=== PATIENT | female | born 1930 | race Asian ===

== ENCOUNTER 2018-02-09 23:02 | Observation (INO) | payer MEDICARE, OTHER ==
[2018-02-10 00:12] LABS: ADD MAN DIFF? NO
[2018-02-10 00:13] LABS: BASOPHIL # 0.1 10^3/ul (0.0-0.1); BASOPHILS % 0.7 % (0.0-2.0); EOSINOPHILS # 0.1 10^3/ul (0.0-0.5); HEMATOCRIT 39.8 % (37.0-47.0); HEMOGLOBIN 13.1 g/dl (12.0-16.0); LYMPHOCYTES # 1.6 10^3/ul (0.8-2.9); LYMPHOCYTES % 16.5 % (15.0-51.0); MEAN CORPUSCULAR HEMOGLOBIN 30.2 pg (29.0-33.0); MEAN CORPUSCULAR HGB CONC 32.9 g/dl (32.0-37.0); MEAN CORPUSCULAR VOLUME 91.7 fl (82.0-101.0); MEAN PLATELET VOLUME 9.8 fl (7.4-10.4); MONOCYTE # 0.6 10^3/ul (0.3-0.9); MONOCYTES % 5.9 % (0.0-11.0); NEUTROPHIL # 7.5 10^3/ul (1.6-7.5); NEUTROPHILS % 75.6 % (39.0-77.0); PLATELET COUNT 231 10^3/UL (140-415); RED BLOOD COUNT 4.34 10^6/ul (4.20-5.40); RED CELL DISTRIBUTION WIDTH 12.9 % (11.5-14.5)
[2018-02-10] MEDS: SOD CHLORIDE 0.9% 500 ML IV (00:24)
[2018-02-10 00:36] LABS: ANION GAP 10 (5-13); BLOOD UREA NITROGEN 16 mg/dl (7-20); CALCIUM 8.4 mg/dl (8.4-10.2); CARBON DIOXIDE 27 mmol/L (21-31); CHLORIDE 100 mmol/L (97-110); CREATININE 0.52 mg/dl (0.44-1.00); GLUCOSE 123 mg/dl (70-220); POTASSIUM 4.1 mmol/L (3.5-5.1); SODIUM 137 mmol/L (135-144)
[2018-02-10] MEDS: MECLIZINE 12.5 MG TAB PO (00:37)
[2018-02-10] MEDS: ONDANSETRON 4 MG INJ IV (00:37)
[2018-02-10 00:47] LABS: TROPONIN-I < 0.012 ng/ml (0.000-0.120)
[2018-02-10] MEDS ORDERED: ONDANSETRON 4 MG INJ IV (06:00)
[2018-02-10] MEDS ORDERED: NACL 0.9% 3 ML SYG IV (06:00)
[2018-02-10] MEDS ORDERED: ACETAMINOPHEN 325 MG TAB PO (06:00)
[2018-02-10] MEDS ORDERED: MECLIZINE 25 MG TAB PO (06:30)
[2018-02-10 07:06] LABS: CREATINE KINASE 102 IU/L (23-200)
[2018-02-10 07:10] LABS: CK INDEX 1.2; CK-MB 1.27 ng/ml (0.0-2.4); TROPONIN-I < 0.012 ng/ml (0.000-0.120)
[2018-02-10] MEDS: DONEPEZIL 10 MG TAB PO (09:07)
[2018-02-10] MEDS: AMLODIPINE 5 MG TAB PO (09:08)
[2018-02-10] MEDS: ENOXAPARIN 30 MG/0.3 ML SYG SC (09:11)
[2018-02-10] MEDS: SOD CHLORIDE 0.9% 100 ML (09:40)
[2018-02-10] MEDS: IOHEXOL 300MG/ML 150 ML BTL (09:40)
[2018-02-10 12:32] LABS: CREATINE KINASE 105 IU/L (23-200)
[2018-02-10 12:44] LABS: CK INDEX 1.1; CK-MB 1.12 ng/ml (0.0-2.4); TROPONIN-I < 0.012 ng/ml (0.000-0.120)
[2018-02-10] MEDS: ATORVASTATIN 20 MG TAB PO (20:22)
[2018-02-10] MEDS: MECLIZINE 25 MG TAB PO (20:22)
[2018-02-11] MEDS: MECLIZINE 25 MG TAB PO (08:21)
[2018-02-11] MEDS: DONEPEZIL 10 MG TAB PO (08:21)
[2018-02-11] MEDS: AMLODIPINE 5 MG TAB PO (08:21)
[2018-02-11] MEDS: ENOXAPARIN 30 MG/0.3 ML SYG SC (09:34)
[2018-02-11 10:08] LABS: ADD MAN DIFF? NO
[2018-02-11 10:11] LABS: WHITE BLOOD COUNT 8.4 10^3/ul (4.8-10.8)
[2018-02-11 10:11] LABS: BASOPHIL # 0.1 10^3/ul (0.0-0.1); BASOPHILS % 0.9 % (0.0-2.0); EOSINOPHILS # 0.2 10^3/ul (0.0-0.5); EOSINOPHILS % 2.3 % (0.0-7.0); HEMATOCRIT 40.7 % (37.0-47.0); HEMOGLOBIN 13.5 g/dl (12.0-16.0); LYMPHOCYTES # 2.5 10^3/ul (0.8-2.9); LYMPHOCYTES % 30.1 % (15.0-51.0); MEAN CORPUSCULAR HEMOGLOBIN 30.2 pg (29.0-33.0); MEAN CORPUSCULAR HGB CONC 33.2 g/dl (32.0-37.0); MEAN CORPUSCULAR VOLUME 91.1 fl (82.0-101.0); MEAN PLATELET VOLUME 9.1 fl (7.4-10.4); MONOCYTE # 0.7 10^3/ul (0.3-0.9); MONOCYTES % 8.5 % (0.0-11.0); NEUTROPHIL # 4.9 10^3/ul (1.6-7.5); PLATELET COUNT 250 10^3/UL (140-415); RED BLOOD COUNT 4.47 10^6/ul (4.20-5.40); RED CELL DISTRIBUTION WIDTH 12.9 % (11.5-14.5)
[2018-02-11 10:24] LABS: HEMOGLOBIN A1C 5.5 % (0-5.9)
[2018-02-11 10:39] LABS: ALANINE AMINOTRANSFERASE 23 IU/L (13-69); ALBUMIN 4.1 g/dl (3.3-4.9); ALBUMIN/GLOBULIN RATIO 1.28; ALKALINE PHOSPHATASE 78 IU/L (42-121); ANION GAP 10 (5-13); ASPARTATE AMINO TRANSFERASE 33 IU/L (15-46); BILIRUBIN,INDIRECT 0.5 mg/dl (0-1.1); BILIRUBIN,TOTAL 0.5 mg/dl (0.2-1.3); BLOOD UREA NITROGEN 19 mg/dl (7-20); CARBON DIOXIDE 26 mmol/L (21-31); CHLORIDE 103 mmol/L (97-110); CHOL/HDL RATIO 2.7 RATIO; CHOLESTEROL 162 mg/dl (100-200); CREATININE 0.79 mg/dl (0.44-1.00); GLUCOSE 117 mg/dl (70-220); HDL CHOLESTEROL 58 mg/dl (33-92); LDL CHOLESTEROL,CALCULATED 81 mg/dl; MAGNESIUM 2.2 mg/dl (1.7-2.5); SODIUM 139 mmol/L (135-144); TOTAL PROTEIN 7.3 g/dl (6.1-8.1); TRIGLYCERIDES 116 mg/dl (0-149)
[2018-02-11 13:22] LABS: THYROID STIMULATING HORMONE 0.582 MIU/L (0.465-4.680)
== END 2018-02-11 11:40 | disposition home or self-care (01) ==
LOC: E/R 23:02 → TEL 02-10 02:44
DX: R42 Dizziness and giddiness (principal); G30.9 Alzheimer's disease, unspecified; F02.80 Dementia in other diseases classified elsewhere, unspecified severity, without behavioral disturbance, psychotic disturbance, mood disturbance, and anxiety; E78.00 Pure hypercholesterolemia, unspecified; I10 Essential (primary) hypertension; E07.9 Disorder of thyroid, unspecified; K09.0 Developmental odontogenic cysts; E78.5 Hyperlipidemia, unspecified
CPT/HCPCS: 36415; 70450; 70491; 70542; 70551; 71045; 80048; 80053; 80061; 82550; 82553; 83036; 83735; 84443; 84484; 85025; 93005; 93880; 96374; 97116; 97161; 97530; 99285-25; G0378